=== PATIENT | male | born 1985 | race Caucasian/White ===

== ENCOUNTER 2016-11-21 09:56 | Outpatient (CLI) ==
[2016-11-21 12:55] LABS: BASOPHILS % (AUTO) 0.4 % (0.0-3.0); EOSINOPHILS # (AUTO) 0.1 K/ul (0.0-0.7); EOSINOPHILS % (AUTO) 1.6 % (0.0-7.0); HEMATOCRIT 43.5 % (42.0-52.0); IMMATURE GRANULOCYTE % (AUTO) 0.4 % (0.0-5.0); LYMPHOCYTES % (AUTO) 24.6 (10.0-50.0); MEAN CORPUSCULAR HEMOGLOBIN 26.3 pg (27.0-31.0); MEAN CORPUSCULAR HGB CONC 32.2 (31.8-35.4); MEAN CORPUSCULAR VOLUME 81.8 fl (80.0-94.0); MONOCYTES # (AUTO) 0.6 K/uL (0.4-2.0); MONOCYTES % (AUTO) 7.5 (0-10); NEUTROPHILS # (AUTO) 5.3 K/ul (2.0-6.9); NEUTROPHILS % (AUTO) 65.5; PLATELET COUNT 222 10^3/uL (140-440); RED BLOOD COUNT 5.32 10^6/ul (4.70-6.10); WHITE BLOOD COUNT 8.05 K/ul (4.2-10.2)
[2016-11-21 13:34] LABS: ALBUMIN 3.8 g/dL (3.4-5.0); ANION GAP 13.8; BILIRUBIN,TOTAL 0.3 mg/dL (0.00-1.20); BUN/CREATININE RATIO 9.61; CALCIUM 9.3 mg/dL (8.2-10.2); CHOL/HDL RATIO 5.3 (4.5-6.4); CREATININE 1.04 mg/dL (0.60-1.10); POTASSIUM 3.8 mmol/L (3.5-5.1); TOTAL PROTEIN 7.6 g/dL (6.4-8.2)
== END 2016-11-21 09:57 | disposition home or self-care (01) ==
LOC: LAB 09:56
PROVIDERS: ATTEND Nurse Practitioner Family
DX: R73.09 Other abnormal glucose (principal); I10 Essential (primary) hypertension; E78.5 Hyperlipidemia, unspecified; F41.9 Anxiety disorder, unspecified; K21.9 Gastro-esophageal reflux disease without esophagitis
CPT/HCPCS: 36415; 80053; 80061; 83036; 84439; 84443; 85025

== ENCOUNTER 2017-09-08 13:05 | Outpatient (CLI) | END 2017-09-08 13:06 | disposition home or self-care (01) | LOC: LAB 13:05 | PROVIDERS: ATTEND Emergency Medicine | DX: J06.9 Acute upper respiratory infection, unspecified (principal) | CPT/HCPCS: 87502; 87651 ==

== ENCOUNTER 2018-01-12 08:22 | Outpatient (CLI) | payer OTHER | END 2018-01-12 08:23 | disposition home or self-care (01) | LOC: LAB 08:22 | PROVIDERS: ATTEND Physician Assistant | DX: Z51.81 Encounter for therapeutic drug level monitoring (principal); Z79.899 Other long term (current) drug therapy | CPT/HCPCS: 36415; 80053; 80061; 84443; 85025 ==

== ENCOUNTER 2018-01-31 10:51 | Outpatient (CLI) | payer OTHER | END 2018-01-31 10:52 | disposition home or self-care (01) | LOC: RHC-LAB 10:51 | PROVIDERS: ATTEND Nurse Practitioner Family | DX: E11.9 Type 2 diabetes mellitus without complications (principal); I10 Essential (primary) hypertension; E78.5 Hyperlipidemia, unspecified | CPT/HCPCS: 36415; 83036 ==

== ENCOUNTER 2018-05-04 08:50 | Outpatient (CLI) | END 2018-05-04 08:51 | disposition home or self-care (01) | LOC: LAB 08:50 | PROVIDERS: ATTEND Nurse Practitioner Family | DX: E11.9 Type 2 diabetes mellitus without complications (principal); I10 Essential (primary) hypertension; E78.5 Hyperlipidemia, unspecified | CPT/HCPCS: 36415; 80053; 80061; 83036 ==

== ENCOUNTER 2018-11-01 08:32 | Outpatient (CLI) | END 2018-11-01 08:33 | disposition home or self-care (01) | LOC: RHC-LAB 08:32 | PROVIDERS: ATTEND Nurse Practitioner Family | DX: E78.5 Hyperlipidemia, unspecified (principal); I10 Essential (primary) hypertension; E11.9 Type 2 diabetes mellitus without complications | CPT/HCPCS: 36415; 80053; 80061; 83036 ==